=== PATIENT | male | born 2000 | race Caucasian/White ===

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

== ENCOUNTER 2020-11-29 21:25 | Inpatient (IN) ==
[2020-11-29] MEDS ORDERED: NS 0.9% 1000 ml BAG 2,000 ML IV ONE (21:52)
[2020-11-29] MEDS ORDERED: Ondansetron 4 mg VIAL 2 MG/ML 2 ml VIAL IV ONE (21:57)
[2020-11-29 22:15] LABS: ABS Monocytes 0.4 10^3/ul (0-0.8); ABS Neutrophils 10.8 10^3/ul (1.5-7.7); Hematocrit 50 % (42-52); Hemoglobin 16.8 g/dL (14.0-18.0); Mean Corpuscular HGB Conc 34 g/dL (31-36); Mean Corpuscular Hemoglobin 29 pg (27-31); Mean Corpuscular Volume 87 fL (80-94); Mean Platelet Volume 9.4 fL (7.4-10.4); Platelet Count 284 10^3/uL (150-450); Red Blood Count 5.78 10^6 /uL (4.18-5.48); Red Cell Distribution Width 13 % (10-15); White Blood Count 12.2 10^3/uL (3.5-10.8)
[2020-11-29 22:33] LABS: Alcohol, S < 10 mg/dL (<10)
[2020-11-29 22:34] LABS: ALT 49 U/L (7-52); AST 33 U/L (13-39); Albumin 5.2 g/dL (3.2-5.2); Albumin/Globulin Ratio 1.5 (1-3); Alkaline Phosphatase 86 U/L (34-104); BUN/Creatinine Ratio 22.7 (8-20); Blood Urea Nitrogen 29 mg/dL (6-24); C Reactive Protein < 1.00 mg/L (<8.01); CO2 Carbon Dioxide 15 mmol/L (22-32); Calcium 10.4 mg/dL (8.6-10.3); Chloride 95 mmol/L (101-111); Creatine Kinase 78 U/L (10-223); EGFR Non-African American 70.3 (>60); Globulin 3.4 g/dL (2-4); Glucose 394 mg/dL (70-100); Magnesium 2.2 mg/dL (1.9-2.7); Phosphorus 4.7 mg/dL (2.5-5.0); Sodium 133 mmol/L (135-145); Total Protein 8.6 g/dL (6.4-8.9)
[2020-11-29 22:36] LABS: Anion Gap 23 mmol/L (2-11); Potassium 5.2 mmol/L (3.5-5.0)
[2020-11-29] MEDS ORDERED: Insulin Infusion 100unit/100mL 100 UNIT/100 ML BAG IV SCH (23:45)
[2020-11-30 00:51] LABS: TSH Ultra Thyroid Stim Horm 12.81 mcIU/mL (0.34-5.60)
[2020-11-30] MEDS ORDERED: NORMOSOL-R pH 7.4 1000 mL BAG 1,000 ML IV SCH ×3 (01:00→06:00)
[2020-11-30 01:01] LABS: Urine Benzodiazepine Screen None Detected (None Detect); Urine Cannabinoids Screen None Detected (None Detect); Urine Opiates Screen None Detected (None Detect)
[2020-11-30] MEDS ORDERED: NORMOSOL-R pH 7.4 1000 mL BAG 1,000 ML IV ONE (02:36)
[2020-11-30] MEDS ORDERED: D5LR 1000 ml BAG 1,000 ML IV SCH ×3 (03:00→07:21)
[2020-11-30 03:48] LABS: BUN/Creatinine Ratio 26.4 (8-20); Calcium 8.2 mg/dL (8.6-10.3); EGFR African American 105.7 (>60); EGFR Non-African American 87.4 (>60); Potassium 4.8 mmol/L (3.5-5.0)
[2020-11-30 06:46] LABS: BUN/Creatinine Ratio 25.5 (8-20); Calcium 8.3 mg/dL (8.6-10.3); EGFR African American 110.5 (>60); EGFR Non-African American 91.3 (>60); Phosphorus 2.5 mg/dL (2.5-5.0); Potassium 4.1 mmol/L (3.5-5.0)
[2020-11-30] MEDS ORDERED: Insulin GLARGINE 100 un/ml 10 ml VIAL SUBCUT ONE (08:20)
[2020-11-30] MEDS ORDERED: Heparin 5000 UNITS/ML 1 mL VIAL SUBCUT SCH (09:00)
[2020-11-30] MEDS ORDERED: Potassium Chlor 20 meq TAB.ER PO ONE (10:47)
[2020-11-30 11:25] LABS: Calcium 8.3 mg/dL (8.6-10.3); EGFR African American 118.5 (>60); EGFR Non-African American 97.9 (>60); Potassium 4.1 mmol/L (3.5-5.0)
[2020-11-30] MEDS ORDERED: Dextrose 50% Syringe 50 ml 25 GM/50 ML SYRINGE IV PUSH PRN (14:49)
[2020-11-30 16:02] VITALS: BP 109/69
== END 2020-11-30 15:30 | disposition left against medical advice (07) | DRG 420 ==
LOC: ED 21:25 → ICU 11-30 00:15
PROVIDERS: ADMIT Student in an Organized Health Care Education/Training Program; ATTEND Student in an Organized Health Care Education/Training Program

== ENCOUNTER 2023-05-30 05:52 | Inpatient (IN) ==
[2023-05-30 06:52] LABS: Venous Bicarbonate HCO3 8.2 mmol/L (24-28)
[2023-05-30 07:03] LABS: INR 0.85 (0.83-1.13)
[2023-05-30 07:08] LABS: Albumin 5.4 g/dL (3.2-5.2); Albumin/Globulin Ratio 1.8 (1-3); Calcium 9.5 mg/dL (8.6-10.3); Creatinine, Serum 1.42 mg/dL (0.67-1.17); Potassium 4.4 mmol/L (3.5-5.0); Total Bilirubin 0.5 mg/dL (0.2-1.0); Total Protein 8.4 g/dL (6.4-8.9); eGFR CKD-EPI 70.8 (>60)
[2023-05-30 07:09] LABS: ABS Basophils 0.1 10^3/uL (0.0-0.1); ABS Monocytes 0.3 10^3/uL (0.0-1.1); ABS Neutrophils 8.1 10^3/uL (1.5-7.6); ABS Nucleated RBC 0.01 10^3/ul; Eosinophil % 0.4 %; Hematocrit 49.3 % (38-53); Hemoglobin 16.8 g/dL (13.2-16.3); Lymphocyte % 10.7 %; Mean Corpuscular Hgb Conc 34.1 g/dL (31-36); Mean Corpuscular Volume 87.9 fL (80-97); Mean Platelet Volume 8.8 fL (7.5-11.2); Nucleated Red Blood Cells % 0.1 /100 WBC (0.0-0.4); Platelet Count 300 10^3/uL (150-450); Red Cell Distribution Width 13.2 % (12-17); White Blood Count 9.6 10^3/uL (3.6-10.2)
[2023-05-30] MEDS ORDERED: [UNRECOGNIZED DRUG - OTHER] IV SCH (07:30)
[2023-05-30] MEDS ORDERED: Ondansetron 4 mg VIAL 2 MG/ML 2 ml VIAL IV ONE (07:31)
[2023-05-30] MEDS: Lactated Ringers 1000 ml BAG 1,000 ML IV SCH ×2 (07:35→08:00)
[2023-05-30 07:50] LABS: Alcohol, S < 13 mg/dL (<13)
[2023-05-30 08:26] LABS: C Reactive Protein < 1.00 mg/L (<8.01)
[2023-05-30] MEDS ORDERED: Insulin GLARGINE 100 un/ml 10 ml VIAL SUBCUT ONE (08:29)
[2023-05-30] MEDS: D5LR 1000 ml BAG 1,000 ML IV SCH ×2 (09:06→14:08)
[2023-05-30] MEDS ORDERED: Ondansetron 4 mg VIAL 2 MG/ML 2 ml VIAL IV PRN (09:15)
[2023-05-30 09:34] LABS: Urine Appearance Clear; Urine Bilirubin Negative (Negative); Urine Blood 2+ (Negative); Urine Color Yellow; Urine Glucose 3+(>=500 mg/dL) (Negative); Urine Ketones 2+ (Negative); Urine Nitrite Negative (Negative); Urine Protein 3+(>=500 mg/dL) (Negative); Urine Specific Gravity 1.018 (1.002-1.030); Urine Urobilinogen Negative (Negative)
[2023-05-30 09:49] LABS: High Sensitivity Troponin 1 Hr < 3 pg/mL (<20)
[2023-05-30 09:59] LABS: Glucose 130 mg/dL (70-100)
[2023-05-30 10:02] LABS: Urine Bacteria Absent (Absent); Urine Red Blood Cell 3+(>10/hpf) (Absent); Urine White Blood Cell Absent (Absent)
[2023-05-30 10:36] LABS: Albumin 4.4 g/dL (3.2-5.2); Albumin/Globulin Ratio 1.7 (1-3); Calcium 8.9 mg/dL (8.6-10.3); Creatinine, Serum 1.17 mg/dL (0.67-1.17); Globulin 2.6 g/dL (2-4); Potassium 3.8 mmol/L (3.5-5.0); Total Bilirubin 0.5 mg/dL (0.2-1.0); eGFR CKD-EPI 89.3 (>60)
[2023-05-30 12:47] LABS: Calcium 8.9 mg/dL (8.6-10.3); Creatinine, Serum 1.2 mg/dL (0.67-1.17); Potassium 3.8 mmol/L (3.5-5.0); eGFR CKD-EPI 86.6 (>60)
[2023-05-30 15:40] LABS: Phosphorus 3.8 mg/dL (2.5-5.0)
[2023-05-30 16:39] LABS: Calcium 8.7 mg/dL (8.6-10.3); Potassium 3.4 mmol/L (3.5-5.0)
[2023-05-30 16:45] LABS: Creatinine, Serum 1.05 mg/dL (0.67-1.17); eGFR CKD-EPI 101.7 (>60)
[2023-05-30] MEDS ORDERED: KCL 20 MEQ/100 ML IVPREMIX 20 MEQ/100 ML BAG IV SCH (18:00)
[2023-05-30 18:44] VITALS: BP 108/68
== END 2023-05-30 19:17 | disposition left against medical advice (07) | DRG 420 ==
LOC: ED 05:52 → EDHOLD 08:52
PROVIDERS: ADMIT Student in an Organized Health Care Education/Training Program; ATTEND Student in an Organized Health Care Education/Training Program

== ENCOUNTER 2024-08-22 17:12 | Inpatient (IN) ==
[2024-08-22] MEDS: Lactated Ringers 1000 ml BAG 1,000 ML IV ONE ×2 (18:29→19:59)
[2024-08-22] MEDS: Pantoprazole VIAL 40 MG VIAL IV ONE (18:29)
[2024-08-22] MEDS: Ondansetron 4 mg VIAL 2 MG/ML 2 ml VIAL IV ONE ×2 (18:29→20:15)
[2024-08-22 18:43] LABS: Venous Bicarbonate HCO3 15.7 mmol/L (24-28)
[2024-08-22 18:46] LABS: ABS Basophils 0.1 10^3/uL (0.0-0.1); ABS Lymphocytes 0.6 10^3/uL (1.0-4.8); ABS Monocytes 0.4 10^3/uL (0.0-1.1); ABS Neutrophils 8.3 10^3/uL (1.5-7.6); Hematocrit 46.3 % (38-53); Hemoglobin 15.5 g/dL (13.2-16.3); Lymphocyte % 6.5 %; Mean Corpuscular Hemoglobin 28.7 pg (27-33); Mean Corpuscular Hgb Conc 33.5 g/dL (31-36); Mean Corpuscular Volume 85.6 fL (80-97); Mean Platelet Volume 9.1 fL (7.5-11.2); Platelet Count 321 10^3/uL (150-450); Red Cell Distribution Width 12.7 % (12-17); White Blood Count 9.4 10^3/uL (3.6-10.2)
[2024-08-22 18:51] LABS: Urine Appearance Clear; Urine Bilirubin Negative (Negative); Urine Blood Negative (Negative); Urine Color Light-Yellow; Urine Glucose 4+ (>=1000 mg/dL) (Negative); Urine Ketones 4+ (Negative); Urine Nitrite Negative (Negative); Urine Protein Trace (Negative); Urine Urobilinogen Negative (Negative)
[2024-08-22 19:26] LABS: ALT 15 U/L (7-52); AST 19 U/L (13-39); Albumin 4.8 g/dL (3.5-5.7); Albumin/Globulin Ratio 1.7 (1-3); Alkaline Phosphatase 103 U/L (35-149); Anion Gap 23 mmol/L (2-16); Blood Urea Nitrogen 28 mg/dL (6-24); C Reactive Protein 45.66 mg/L (<8.01); CO2 Carbon Dioxide 16 mmol/L (22-32); Calcium 9.9 mg/dL (8.6-10.3); Chloride 94 mmol/L (101-111); Creatinine, Serum 1.31 mg/dL (0.67-1.17); Globulin 2.8 g/dL (2-4); Glucose 382 mg/dL (70-100); Lipase < 10 U/L (11.0-82.0); Potassium 5.3 mmol/L (3.5-5.0); Sodium 133 mmol/L (135-145); Total Bilirubin 0.5 mg/dL (0.2-1.0); Total Protein 7.6 g/dL (6.4-8.9); eGFR CKD-EPI 77.5 (>60)
[2024-08-22] MEDS ORDERED: Dextrose 50% Syringe 50 ml 25 GM/50 ML SYRINGE IV PUSH PRN (19:28)
[2024-08-22 20:42] LABS: Phosphorus 5.4 mg/dL (2.5-5.0)
[2024-08-22] MEDS: Insulin Infusion 100unit/100mL 100 UNIT/100 ML BAG IV SCH (21:04)
[2024-08-22] MEDS: Prochlorperazine 5 mg/ml 2 ml VIAL (10 mg) IV ONE (21:43)
[2024-08-22] MEDS: Lactated Ringers 1000 ml BAG 1,000 ML IV SCH (23:00)
[2024-08-22 23:31] LABS: Anion Gap 18 mmol/L (2-16); Blood Urea Nitrogen 21 mg/dL (6-24); CO2 Carbon Dioxide 10 mmol/L (22-32); Calcium 6.6 mg/dL (8.6-10.3); Chloride 108 mmol/L (101-111); Creatinine, Serum 0.81 mg/dL (0.67-1.17); Glucose 254 mg/dL (70-100); Sodium 136 mmol/L (135-145); eGFR CKD-EPI 125.5 (>60)
[2024-08-23 01:04] VITALS: BP 117/63
== END 2024-08-23 01:05 | disposition left against medical advice (07) | DRG 420 ==
LOC: ED 17:12 → EDHOLD 19:48
PROVIDERS: ADMIT Internal Medicine; ATTEND Internal Medicine